=== PATIENT | female | born 1995 | race Caucasian/White ===

== ENCOUNTER 2017-05-19 06:58 | Emergency (ER) | payer OTHER ==
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
[2017-05-19 07:41] VITALS: BP 134/78; PULSE 104; RESP 16; TEMP 98.6; O2SAT 96
[2017-05-19] MEDS ORDERED: ULIPRISTAL ACETATE 30 MG TAB PO ONE (11:57)
[2017-05-19] MEDS ORDERED: IBUPROFEN 600 MG TAB PO ONE (11:57)
[2017-05-19] MEDS ORDERED: ONDANSETRON DISINTEGRATING 4 MG TAB PO ONE (11:57)
== END 2017-05-19 13:00 | disposition home or self-care (01) ==
LOC: EEVIPCON 06:58
DX: Z04.41 Encounter for examination and observation following alleged adult rape (principal); F17.200 Nicotine dependence, unspecified, uncomplicated